=== PATIENT | male | born 1995 | race Caucasian/White ===

== ENCOUNTER 2019-01-21 19:33 | Emergency (ER) | payer MEDICAID ==
[2019-01-21 21:03] VITALS: BP 127/87; PULSE 72
[2019-01-21] MEDS ORDERED: Cyclobenzaprine 10 MG Tab PO ONE (21:10)
[2019-01-21] MEDS ORDERED: Ketorolac 60 MG/2 ML SDV IM ONE (21:10)
--- NOTE | 2019-01-21 21:12 | EDM.PDOC ---
ED HPI GENERAL MEDICAL PROBLEM - General Chief Complaint: Back Pain or Injury Stated Complaint: HURT BACK Time Seen by Provider: 01/21/19 21:07 Source of Information: Reports: Patient, Family, RN Notes Reviewed History Limitations: Reports: No Limitations - History of Present Illness INITIAL COMMENTS - FREE TEXT/NARRATIVE: 23-year-old gentleman presents emergency department today complaint of mid back pain, he states he injured himself earlier today when he bent over to pick something up. He is not taking anything for the pain he is concerned it might be his appendix Right Flank Pain Score (Numeric/FACES): 2 - Related Data Allergies Allergy/AdvReac Type Severity Reaction Status Date / Time No Known Allergies Allergy Verified 01/21/19 20:58 Home Meds: Home Meds NK [No Known Home Meds] 05/12/13 [History] Past Medical History Musculoskeletal History: Reports: Fracture Other Musculoskeletal History: hand Social & Family History - Tobacco Use Smoking Status *Q: Never Smoker Second Hand Smoke Exposure: No - Caffeine Use Caffeine Use: Reports: None - Recreational Drug Use Recreational Drug Use: No ED ROS GENERAL - Review of Systems Review Of Systems: See Below Constitutional: Reports: No Symptoms HEENT: Reports: No Symptoms Respiratory: Reports: No Symptoms Cardiovascular: Reports: No Symptoms GI/Abdominal: Reports: No Symptoms Musculoskeletal: Reports: Back Pain ED EXAM, UPPER BACK/NECK PAIN - Physical Exam Exam: See Below Exam Limited By: No Limitations General Appearance: Alert, WD/WN, No Apparent Distress Cardiovascular/Respiratory: Regular Rate, Rhythm, No M/R/G, Normal Breath Sounds , No Respiratory Distress GI/Abdominal: Soft, Non-Tender Back Exam: Normal Inspection, Full Range of Motion, Muscle Spasm, Paraspinal Tenderness (Mid thorax approximately T6-T7 region right side mid scapular line) . No: CVA Tenderness (R), CVA Tenderness (L) Course - Vital Signs Last Recorded V/S: Last Vital Signs Temp 98.2 F 01/21/19 21:02 Pulse 72 01/21/19 21:02 Resp 14 01/21/19 21:02 BP 127/87 01/21/19 21:02 Pulse Ox 98 01/21/19 21:02 - Orders/Labs/Meds Meds: Medications Discontinued Medications Generic Name Dose Route Start Last Admin Trade Name Freq PRN Reason Stop Dose Admin Cyclobenzaprine HCl 10 mg 01/21/19 21:10 01/21/19 21:21 Flexeril PO 01/21/19 21:11 Not Given ONETIME ONE Ketorolac Tromethamine 60 mg 01/21/19 21:10 01/21/19 21:21 Toradol IM 01/21/19 21:11 Not Given ONETIME ONE Departure - Departure Time of Disposition: 21:24 Disposition: Home, Self-Care 01 Condition: Fair Clinical Impression: Mid back pain - Discharge Information Referrals: PCP,None [Primary Care Provider] - Forms: ED Department Discharge Additional Instructions: Use Tylenol or Motrin as needed for pain control, Please followup with your primary care provider in 3-5 days if not better, please call return to the emergency department with worsening of symptoms. - Assessment/Plan Plan: Assessment Acuity = acute Site and laterality = mid back pain right side Etiology = secondary lifting injury Manifestations = none Location of injury = Home Lab values = none Plan He declined any pain medications mainly interested and reassurance him follow- up primary care as needed This note was dictated using [employer] voice recognition software please call with any questions on syntax or grammar.
== END 2019-01-21 21:43 | disposition home or self-care (01) ==
LOC: JP.ED 19:33
DX: M54.6 Pain in thoracic spine (principal); X50.1XXA Overexertion from prolonged static or awkward postures, initial encounter
CPT/HCPCS: 99283

== ENCOUNTER 2021-09-13 13:12 | Emergency (ER) | payer MEDICAID ==
[2021-09-13 13:31] VITALS: BP 134/74; PULSE 66
== END 2021-09-13 14:15 | disposition home or self-care (01) ==
LOC: JP.ED 13:12
DX: L25.5 Unspecified contact dermatitis due to plants, except food (principal)
CPT/HCPCS: 99281; 99282

== ENCOUNTER 2023-03-20 15:06 | Emergency (ER) | payer BC, MEDICAID ==
[2023-03-20] MEDS ORDERED: Naloxone 0.4 MG/ML SDV IVPUSH PRN (15:40)
[2023-03-20] MEDS: Ketorolac 30 MG/ML SDV IVPUSH ONE (15:47)
[2023-03-20] MEDS: HYDROmorphone 0.5 MG/0.5 ML Syringe IVPUSH ONE (15:51)
[2023-03-20 15:52] LABS: BASOPHILS ABSOLUTE AUTO 0.05 K/uL (0.00-0.10); BASOPHILS PERCENT AUTO 0.7 % (0.1-1.3); EOSINOPHILS ABSOLUTE AUTO 0.36 K/uL (0.00-0.40); EOSINOPHILS PERCENT AUTO 5.3 % (0.0-5.4); HEMATOCRIT 42.6 % (38.4-49.7); HEMOGLOBIN 14.4 g/dL (12.9-16.9); IMMATURE GRAN ABSOLUTE AUTO 0.03 K/uL (0.00-0.23); IMMATURE GRAN PERCENT AUTO 0.4 % (0.0-0.7); LYMPHOCYTES ABSOLUTE AUTO 3.06 K/uL (0.8-3.3); LYMPHOCYTES PERCENT AUTO 45.1 % (11.4-47.7); MEAN CORPUSCULAR HEMOGLOBIN 28.7 pg (31.6-35.5); MEAN CORPUSCULAR HGB CONC 33.8 g/dL (31.6-35.5); MEAN CORPUSCULAR VOLUME 84.9 fL (81.4-99.0); MONOCYTES PERCENT AUTO 8.8 % (3.3-12.6); NEUTROPHILS ABSOLUTE AUTO 2.69 K/uL (1.0-7.6); NEUTROPHILS PERCENT AUTO 39.7 % (40.0-78.1); PLATELET COUNT,PLT 242 K/uL (130-375); RED BLOOD CELL COUNT 5.02 M/uL (4.14-5.76); WHITE BLOOD CELL COUNT,WBC 6.8 K/uL (3.2-11.0)
[2023-03-20] MEDS: Sodium Chloride 0.9% 1,000 ML IV ONE (15:52)
[2023-03-20 16:12] LABS: A/G RATIO 1.1 (1.2-2.2); ALANINE AMINOTRANSFERASE,ALT 22 U/L (12-78); ALBUMIN 3.6 g/dL (3.4-5.0); ALKALINE PHOSPHATASE 74 U/L (46-116); ASPARTATE AMNIOTRANSFERASE,AST 16 U/L (15-37); BILIRUBIN TOTAL 0.6 mg/dL (0.2-1.0); BLOOD UREA NITROGEN,BUN 11 mg/dL (7-18); C-REACTIVE PROTEIN 0.19 mg/dL (0.0-0.3); CALCIUM 8.4 mg/dL (8.5-10.1); CARBON DIOXIDE,CO2 29 mmol/L (21-32); CHLORIDE,CL 103 mmol/L (100-108); EST CRCL DRUG DOSING (CG) 130.27 mL/min; ESTIMATED GFR 104 mL/min (>60); GLUCOSE RANDOM 103 mg/dL (74-106); POTASSIUM,K 3.3 mmol/L (3.6-5.2); SODIUM,NA 141 mmol/L (140-148)
[2023-03-20 16:15] LABS: ANION GAP 12.3 mmol/L (5.0-14.0)
[2023-03-20] MEDS: Potassium Chloride 20 MEQ Tab.ER PO ONE (16:23)
[2023-03-20] MEDS: Iopamidol 612 MG/ML 100 ML Bottle IV ONE (16:42)
[2023-03-20] MEDS: Sodium Chloride 0.9% 50 ML IV ONE (16:42)
[2023-03-20] MEDS: Sodium Chloride 0.9% 10 ML Syringe FLUSH ONE (16:42)
[2023-03-20 17:17] VITALS: BP 133/84; PULSE 67
== END 2023-03-20 18:47 | disposition home or self-care (01) ==
LOC: JP.ED 15:06
DX: N20.0 Calculus of kidney (principal)
CPT/HCPCS: 36415; 74177; 80053; 83690; 85025; 86140; 96361; 96374; 96375; 99284; A9270; J1170; J1885; J3490; J7030; Q9967